=== PATIENT | female | born 1940 | race Caucasian/White ===

== ENCOUNTER → 2018-10-06 | Outpatient (CLI) | payer OTHER ==
[~2018-10-06] VITALS: Ht 157.5 cm; Wt 99.8 kg
[~2018-10-06] MED LIST: ACCUNEB SO1.25 MG/1 INH; ALBUTEROL2.5 MG/31 INH; CENTRUM SILVER1 EAC4 PO; COUMADIN 5 MG TA5 M1 PO; CRESTOR10 MG PO; ENOXAPARIN100 MG/11 SUBQ; EYE CAPS PO; FLEXERIL PO; HYDROCHLOROTHIA25 M2 PO; METFORMIN HCL500 MG PO; METOPROLOL TART25 MG PO; MOBIC15 MG PO; NEURONTIN 300300 M1 PO; PLAVIX 75 MG TA75 M1 PO; PRED FORTE 1% EY5 M1 OPHTHALMIC; PROTONIX40 M1 PO; VERAPAMIL E.R240 M1 PO; ZYRTEC10 M5 PO
--- NOTE | ~2018-10-06 | P ---
[facility] [place] [address] PROCEDURE REPORT Name: MARY ROBIN ATUL Room #: REG [facility] MKaren.#: [id number] Admission: 10/06/18 ������������������ Attend Phys: Isaias Tao MD Discharge: ������������������ Date of : 40 Report #: [id number] THIS REPORT FOR: //name// CC: Lashell Tao DATE OF SERVICE: 10/06/2018 OUTPATIENT COLONOSCOPY REPORT BRIEF HISTORY: The patient is a 77-year-old woman with a history of colon cancer, surgically removed in 2003, high risk screening. PREOPERATIVE DIAGNOSIS: High risk screening colonoscopy due to history of colon cancer. POSTOPERATIVE DIAGNOSES: 1. Colon polyps. 2. Moderate sigmoid diverticulosis coli. 3. Small internal hemorrhoids. MEDICATIONS: Deep sedation with propofol per anesthesia. SPECIMENS: 1. Polyp from anastomotic site at 40 cm. 2. Polyp at 20 cm. ESTIMATED BLOOD LOSS: 3 mL. PROCEDURE: Colonoscopy to cecum and terminal ileum with snare polypectomy and biopsy. FINDINGS: Prior to propofol sedation, the procedure of colonoscopy discussed with the patient as well as potential risks and its complications. She indicates she understands and desires to proceed. DESCRIPTION OF PROCEDURE: With the patient in lateral decubitus position, digital examination was completed, which revealed no abnormalities. Subsequently, the Olympus video colonoscope was introduced in the rectum, advanced under direct vision to the cecum. Cecum was identified by the ileocecal valve and the appendiceal orifice. I was able to visualize the distal cecum and the terminal ileum. At that point, the scope was slowly withdrawn and careful circumferential views were obtained. Upon slow withdrawal of the scope, the colon was inspected. The mucosa was within normal limits, normal vascular pattern, normal light reflex. Overall, the prep was good after some clean up. [facility] [address] [place] [address] PROCEDURE REPORT Name: MARY ROBIN Room #: REG MANJINDER Anthony#: [id number] Admission: 10/06/18 ������������������ Attend Phys: Isaias Tao MD Discharge: ������������������ Date of : 40 Report #: [id number] As we withdrew the scope, she had normal appearing mucosa. The surgical anastomosis was identified at about 40 cm. It was an end-to-side anastomosis. The anastomosis was inspected and noted to be intact. The mucosa around the anastomosis including recessed area was unremarkable and without evidence of inflammatory changes. However, a cm just distal to the anastomosis was an irregular shaped polyp that appeared to be superficially ulcerated, but not bleeding. It was about 12 mm in greatest dimension on a narrow base. This was thought to be an inflammatory polyp. It was removed by hot snare polypectomy with good results. Following removal, the site was inspected. There was no bleeding. The cautery site was fairly small. However, due to the fact that she does require anticoagulation with bridging with Lovenox, a hemostatic clip was placed. The scope was further withdrawn and she was noted to have moderately severe diverticular disease in the sigmoid without endoscopic evidence of diverticulitis. At 20 cm, a diminutive polyp was seen and removed with biopsy forceps. The scope was further withdrawn and no additional neoplastic lesions were seen in the remainder of the colon and the rectum. Upon retroflexion, small hemorrhoids were seen. The scope was withdrawn. The patient tolerated the procedure well. CONDITION OF THE PATIENT UPON DISCHARGE: Following procedure, the patient was drowsy, arousable and conversant and will be discharged home when fully ambulatory. INSTRUCTIONS TO THE PATIENT AND FAMILY AT THE TIME OF DISCHARGE: Two polyps identified and removed as described above. We will follow up on the pathology report. We will have her return for a followup colonoscopy in 3 years. Also have her resume her Lovenox this afternoon. She should also resume her warfarin as well. The cautery site from the hot polypectomy was relatively small and a hemostatic clip was also placed. We will discuss with the patient the possibility of GI bleeding, although I think it is unlikely. However, in view of the fact she had a stroke off of anticoagulation after last colonoscopy, I think we should push forward with anticoagulation as soon as possible. ��������������������������������������������� ���������������������������������������� By: ��������������������������������������������� [id number] Isaias Tao MD /emma
--- NOTE | 2018-10-08 17:06 | PATH ---
[facility] [place] [address] PATHOLOGY RPT PROCEDURE Name: CLEMENTSMARY JARAMILLO Room #: REG MANJINDER Jarrell.#: [id number] ������������������ Admission: 10/06/18 ������������������ Date of : 40 Discharge: Report #: [id number] Path Case #: [id number] [facility] Accession Number: [id number] . 01 Material submitted: . PART A: colon - POLYP AT SURGICAL ANASTAMOSIS (40CM) PART B: colon - BX POLYP AT 20CM . 01 Clinical history: . Preop DX: Hx colon polyps; colon cancer Postop DX: Colon polyps, diverticulosis, hemorrhoids . 02 Diagnosis: A. Polyp, at surgical anastomosis (40 cm), endoscopic biopsy: - Inflammatory polyp with ulceration and hyperplastic changes, compatible with an inflamed hyperplastic polyp. - Negative for dysplasia. . B. Polyp, at 20 cm, endoscopic biopsy: - Minute tubular adenoma. - Negative for high grade dysplasia. (IUV/db; 10/08/2018) LBQ/10/08/2018 . 02 Electronically signed: . Jami Hunt MD, Pathologist NPI- [id number] . 01 Gross description: . A. The specimen is received in formalin labeled "Mary Clements, polyp at surgical anastomosis (40 cm)". The specimen source is additionally labeled on the requisition as "polyp at surgical anastomosis (40 cm)". Received is a polypoid segment of yellow-griffin soft tissue measuring 1.3 x 0.8 x 0.7 cm in greatest dimensions. The surgical margin is inked, and the specimen is bisected and submitted entirely in cassette A1. Sectioning reveals griffin-brown cut surfaces. . B. Received in formalin labeled "Mary Clements, BX polyp at 20 cm," are three segments of pale griffin soft tissue measuring 0.6 x 0.5 x 0.2 cm in aggregate dimensions and ranging from 0.2 to 0.6 cm in maximum dimension. The specimen is submitted entirely in cassette B1. (DAC; 10/07/2018) XDC/XDC . 02 Pathologist provided ICD-10: K63.5, K63.3, D12.6 . 02 [place] [address] PATHOLOGY RPT PROCEDURE Name: MARY CLEMENTS ATUL Room #: REG CLJennifer Anthony#: [id number] ������������������ Admission: 10/06/18 ������������������ Date of : 40 Discharge: Report #: [id number] Path Case #: [id number] CPT . [id number], [id number] Specimen Comment: A courtesy copy of this report has been sent to Specimen Comment: [phone], . Specimen Comment: Report sent to / DR STEIN Performed at: [address] [facility], [place], [place] [id number] MD Andrea Hogue MD Phone: [phone] Performed at: [address] [id number] MD Jami Hunt MD Phone: [phone]
== END | disposition home or self-care (01) ==
LOC: GI 08:12
DX: Z12.11 Encounter for screening for malignant neoplasm of colon (principal); Z85.038 Personal history of other malignant neoplasm of large intestine; Z86.010 Personal history of colon polyps; D12.7 Benign neoplasm of rectosigmoid junction; K63.5 Polyp of colon; K57.30 Diverticulosis of large intestine without perforation or abscess without bleeding; K64.8 Other hemorrhoids; K21.9 Gastro-esophageal reflux disease without esophagitis; I10 Essential (primary) hypertension; E11.9 Type 2 diabetes mellitus without complications; E78.5 Hyperlipidemia, unspecified; Z98.0 Intestinal bypass and anastomosis status; Z86.73 Personal history of transient ischemic attack (TIA), and cerebral infarction without residual deficits; Z86.711 Personal history of pulmonary embolism; Z79.01 Long term (current) use of anticoagulants; Z90.710 Acquired absence of both cervix and uterus; Z98.41 Cataract extraction status, right eye; Z98.42 Cataract extraction status, left eye; Z90.49 Acquired absence of other specified parts of digestive tract; Z79.899 Other long term (current) drug therapy; Z98.890 Other specified postprocedural states
CPT/HCPCS: 62110; 62900